=== PATIENT | male | born 1935 | race Caucasian/White ===

== ENCOUNTER 2019-03-25 12:13 | Outpatient (CLI) | payer MEDICARE ==
--- NOTE | 2019-03-25 13:42 | MRI ---
MRI Brain W WO Con HISTORY: Frontotemporal dementia COMPARISON: None CORRELATION: CT scan from 03/18/2019. FINDINGS: There are changes of cortical atrophy and chronic small vessel ischemic disease. The ventricular size is appropriate and the basilar cisterns are patent. No restricted diffusion is seen. No evidence of mass, acute infarct, hemorrhage, midline shift or abn ormal extra-axial fluid collections is seen. There are no abnormal areas of postcontrast enhancement. There is mucosal disease in the paranasal sinuses. IMPRESSION: No evidence of acute intracranial process or mass.
== END 2019-03-25 12:14 | disposition home or self-care (01) ==
LOC: SCSMRI 12:13
PROVIDERS: ATTEND Psychiatry & Neurology Neurology
DX: G31.09 Other frontotemporal neurocognitive disorder (principal)
CPT/HCPCS: 70553; 82565

== ENCOUNTER 2019-09-09 13:23 | Outpatient (CLI) | payer MEDICARE ==
--- NOTE | 2019-09-09 17:25 | RAD ---
CERVICAL SPINE RADIOGRAPH SERIES FOUR VIEW SERIES: 09/09/19 INDICATION: Fall, temporal dementia. FINDINGS: There is severe multilevel degenerative change throughout the cervical spine. Oblique views reveal pr ominent osseous narrowing of the neural foramina most noted on the left oblique imaging at the upper to mid cervical spine, although diffuse involvement is present there is multilevel end plate osteophy tosis, end plate sclerosis and disc space narrowing with multilevel prominent facet osteoarthritis. U ncinate process hypertrophy is also demonstrated. No compression fracture or significant subluxation. Accentuation of the cervical lordosis. Prevertebr al soft tissue stripe is normal in thickness. Incidental note of atherosclerosis and ectasia projecting at the aortic knob. 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 POS: C
== END 2019-09-09 13:24 | disposition home or self-care (01) ==
LOC: SCSRAD 13:23
PROVIDERS: ATTEND Psychiatry & Neurology Neurology
DX: G31.09 Other frontotemporal neurocognitive disorder (principal); M47.812 Spondylosis without myelopathy or radiculopathy, cervical region
CPT/HCPCS: 72050

== ENCOUNTER 2021-03-16 05:38 | Emergency (ER) | payer OTHER, MEDICARE | END 2021-03-16 09:32 | LOC: ERS 05:38 | DX: S12.110A Anterior displaced Type II dens fracture, initial encounter for closed fracture (principal); S01.81XA Laceration without foreign body of other part of head, initial encounter; I73.9 Peripheral vascular disease, unspecified; I25.2 Old myocardial infarction; E78.5 Hyperlipidemia, unspecified; I25.10 Atherosclerotic heart disease of native coronary artery without angina pectoris; I10 Essential (primary) hypertension; Z79.899 Other long term (current) drug therapy; W01.10XA Fall on same level from slipping, tripping and stumbling with subsequent striking against unspecified object, initial encounter | CPT/HCPCS: 99283 ==